=== PATIENT | male | born 1945 | race Caucasian/White ===

== ENCOUNTER 2018-07-14 01:31 | Observation (INO) | payer OTHER, MEDICARE ==
[~2018-07-14] VITALS: Ht 162.6 cm; Wt 87.1 kg
[~2018-07-14 01:31] MED LIST: ACID CONTROLLER20 MG PO; BAYER CHEWABLE81 MG PO; KETOCONAZOLE15 GM; LATANOPROST2.5 ML OU; MULTIVITAMINS1 EAC9 PO; SIMVASTATIN40 M1 PO; TOPROL XL25 M1 PO; ZETIA10 M1 PO
[2018-07-14 06:17] LABS: ABSOLUTE BASOPHIL COUNT 0.1 /CUMM (0.0-0.2); ABSOLUTE EOSINOPHIL COUNT 0.4 /CUMM (0.0-0.7); ABSOLUTE GRANULOCYTE CT 3.9 /CUMM (1.4-6.5); ABSOLUTE LYMPH COUNT 2.2 /CUMM (1.2-3.4); ABSOLUTE MONOCYTE COUNT 0.8 /CUMM (0.10-0.60); BASOPHIL % 0.8 % (0.0-2.0); EOSINOPHIL % 4.9 % (0-5); GRANULOCYTE % 52.8 % (42.2-75.2); HEMATOCRIT 42.9 % (42-52); MEAN CORPUSCULAR HGB 31.4 PG (27.0-31.0); MEAN CORPUSCULAR HGB CONC 33.9 G/DL (33.0-37.0); MEAN CORPUSCULAR VOLUME 92.6 FL (80.0-94.0); MEAN PLATELET VOLUME 6.6 FL (7.4-10.4); PLATELET COUNT 304 /CUMM (130-400); RBC DISTRIBUTION WIDTH 13.8 % (11.5-14.5); RED BLOOD CELL CT 4.63 /CUMM (4.70-6.10); WHITE BLOOD CELL COUNT 7.3 /CUMM (4.8-10.8)
--- NOTE | 2018-07-14 12:43 | Admission Core Measures ---
Acute Coronary Syndrome (CM) ACS Core Measures Acute Coronary Syndrome Diagnosis No Congestive Heart Failure (NEW) CHF Core Measures Congestive Heart Failure Diagnosis No Cerebrovascular Accident CVA Core Measures CVA/TIA Diagnosis No Venous Thromboembolism VTE Core [place] (View Protocol) VTE Risk Factors Surgery No Mechanical VTE Prophylaxis d/t N/A MechProphylax Ordered No VTE Pharm Prophylaxis d/t NA PharmProphylax ordered Problem List As ranked by this Provider includes Assessment & Plan 1. Ventral hernia HOME MEDS Home Med List Aspirin (Rene Chewable Aspirin) 81 MG TAB.CHEW 1 TAB PO DAILY HEART HEALTH ( Reported) Ezetimibe (Zetia) 10 MG TABLET 10 MG PO DAILY CHOLESTEROL (Reported) Famotidine (Acid Controller) 20 MG TABLET 20 MG PO DAILY ACID REFLUX ( Reported) Latanoprost 0.005 % DROPS 1 DROP OU DAILY OCULAR PRESSURE (Reported) Metoprolol Succ XL (Toprol XL) 25 MG TAB 1 TAB PO DAILY BLOOD PRESSURE ( Reported) Multiple Vitamin (Multivitamins) 1 EACH TABLET 1 TAB PO DAILY SUPPLEMENT ( Reported) Simvastatin (Simvastatin*) 40 MG TABLET 1 TAB PO DAILY CHOLESTEROL (Reported)
--- NOTE | 2018-07-14 12:46 | Surg Short-stay <48hrs Dis Sum ---
Visit Information Visit Dates Admission Date: 07/14/18 Discharge Date: 07/15/18 Surgical Short Stay DC Summary Admission Diagnosis: 1. Recurrent incarcerated incisional hernias with incarcerated umbilical hernia. 2. Rectus diastases Final Diagnosis: KOFI s/p robotic repair of recurrent incarcerated incisional hernias and incarcerated umbilical hernia, IPOM, 8 x 15 Sepramesh; explantation of prior Ventralex mesh with PTFE coating Procedure(s): 1. Robotic repair of recurrent incarcerated incisional hernias and incarcerated umbilical hernia, IPOM, 8 x 15 Sepramesh 2. Explantation of prior Ventralex mesh with PTFE coating Summary/Significant Findings: Patient presented for an elective robotic repair of recurrent incarcerated incisional hernias and incarcerated umbilical hernia and explantation of prior mesh. He tolerated the procedure well. Diet was advanced and tolerated. On the day of discharge, he was voiding spontaneously, ambulating without difficulty and pain was controlled with oral analgesics. Condition at Discharge: Stable Discharge Disposition: home or self care Discharge instructions provided to patient/family: Yes Post discharge follow-up plan: 1-[address] Frankel
--- NOTE | 2018-07-14 12:49 | Patient Discharge Instructions ---
Discharge Instructions General Discharge Information You were seen/treated for: Recurrent incarcerated incisional hernias with incarcerated umbilical hernia Rectus diastases You had these procedures: Robotic repair of recurrent incarcerated incisional hernias and incarcerated umbilical hernia with explantation of prior mesh on 07/14 Watch for these problems: Increased pain, fever > 101.3, chills, nausea, vomiting, redness, swelling or drainage from incisions Do not soak the wound: Yes No bath, but you may shower: Yes Other wound care: Keep incisions clean and dry Change dressing daily as needed Diet Continue normal diet: Yes Recommended Diet: Regular Activity Full Activity/No Limits: No Activity Self Limited: Yes Pounds, do NOT lift more than: 10 (x 4 weeks) Other activity limits: No heavy lifting or strenous activity x 4 weeks Acute Coronary Syndrome Inclusion Criteria At DC or during hospital stay patient has or had the following: ACS DIAGNOSIS No Discharge Core Measures Meds if any: Prescribed or Continued at Discharge Meds if any: NOT Prescribed or Continued at Discharge Congestive Heart Failure Inclusion Criteria At DC or during hospital stay patient has or had the following: CHF DIAGNOSIS No Discharge Core Measures Meds if any: Prescribed or Continued at Discharge Meds if any: NOT Prescribed or Continued at Discharge Cerebrovascular accident Inclusion Criteria At DC or during hospital stay patient has or had the following: CVA/TIA Diagnosis No Discharge Core Measures Meds if any: Prescribed or Continued at Discharge Meds if any: NOT Prescribed or Continued at Discharge Venous thromboembolism Inclusion Criteria VTE Diagnosis No VTE Type NONE VTE Confirmed by (Test) NONE Discharge Core Measures - Per Current guidelines, there needs to be overlap - treatment for the first 5 days of Warfarin therapy. - If discharged on Warfarin prior to 5 days of - overlap therapy, the patient will need to be - assessed for post discharge needs including - *Post discharge parental anticoagulation - *Warfarin and/or parental anticoagulation education - *Follow up date to check INR post discharge At least 5 days overlap therapy as Inpatient No Meds if any: Prescribed or Continued at Discharge Note: Overlap Therapy is Warfarin and Anticoagulant Meds if any: NOT Prescribed or Continued at Discharge
[2018-07-14 14:51] VITALS: BP 116/84
--- NOTE | 2018-07-14 16:53 | Operative Report ---
Operative/Inv Procedure Report Surgery Date: 07/14/18 Name of Procedure: Robotic repair of recurrent incarcerated incisional hernias and incarcerated umbilical hernia, IPOM, 8 x 15 Sepramesh Explantation of prior Ventralex mesh with PTFE coating Pre-Operative Diagnosis: Recurrent incarcerated incisional hernias with incarcerated umbilical hernia. Rectus diastases Post-Operative Diagnosis: Same Estimated Blood Loss: scant Surgeon/Manager Shift: Marlys VILLARREAL,Leo Mahan PA-C Anesthesia: general endotracheal tube, block IV Fluids: 1800 cc crystalloid ASA 2 Implants: 8 x 15 cm Septra mesh Drains: None Specimens: None Complications: None Condition: Excellent to PACU extubated Operative Indication: Al is a 73-year-old gentleman who has had prior mesh repair of a incisional hernia supraumbilical probably related to his prostate surgery and who noticed a progressive bulging and discomfort in that area. CT scan revealed an incarcerated recurrent incisional hernia which was bowel and mesentery containing in addition to a more superior smaller fat-containing incisional hernia and a fat-containing umbilical hernia. He presents for robotic repair of all of these. Mesh explantation is possible.. Operative/Procedure Note Note: The patient is taken to the operating room placed on the operating table in supine position. His herniated areas were marked in the preop holding area and his abdomen clipped in the preop holding area as well. Following an awake timeout he underwent uneventful induction of general endotracheal anesthesia. Right arm was tucked on his side his left arm was out. A TAP block was performed by anesthesia with ultrasound guidance. Venodyne boots were in place and he received IV antibiotics as well as subcu heparin 5000. A rolled bath blanket was placed behind his left flank and the table flexed. The abdomen was then widely prepped with DuraPrep and then draped in usual sterile fashion including Ioban. Local anesthetic was now infiltrated in the left upper quadrant at the site of planned incision which was just off the edge of the rib at about the level of the anterior axillary line. Incision was carried down through skin and subcutaneous tissue with the cautery now to the through Alison' s fascia to the external oblique aponeurosis. This was opened along its fibers and stay sutures of 0 Vicryl placed. The internal Bleich had a reasonable fashion on was open transversely and the muscle split. This revealed the transversus abdominis which was also had a thin fascia to it which was split to expose the transversalis fascia and peritoneum. It was carefully incised to gain entry safely into the peritoneal cavity and a finger sweep revealed there were no adhesions and a 12 mm Smith port placed secured with the stay sutures and a pneumoperitoneum achieved. Patient was rolled slightly to the right side. Now the 8 mm exercise 30 scope was placed within and one could see the area of concern with prior hernia mesh rolled up on one edge on the on the left another area surrounding this with adherent omentum consistent with the CT findings of recurrent hernias. We placed 2 8 mm working ports laterally the lowest at the level of the ASIS and the other at custodial between the first 2 ports all after infiltrating local anesthetic. The middle port was placed as lateral as possible. Now the XI robot was docked and the camera placed in the middle 3 arm while the 2-arm received a fenestrated bipolar and monopolar jose was placed and on for a while arm 1 was sterilely stowed. I began by taking down adhesions to the cephalad most hernia. There was some omentum pulled up here with some traction on this I was able to incise the margin of the defect to free the omentum and release it completely. This was a 2 x 1.5 cm defect. There was a small satellite defects less than 1 cm immediately adjacent to this. One could appreciate the area of the diastases noted on CT scan. I then turned attention to the umbilical hernia were cleared off a large fat pad beginning on the left side working across the midline and identifying the fat-containing umbilical hernia reducing a completely leaving the flap of preperitoneal fat attached inferiorly. Superiorly it was behind the inferior portion of the Ventralex mesh. This was a PTFE coated old style Ventralex mesh. Left side had clearly rolled up and partially rolled up inferiorly. And now began dissecting around the primary defect working at the edge of the mesh and reducing a large volume of merely omentum. There was no bowel within the hernia contents. External pressure by the PAs facilitated this quite nicely and there is really minimal bleeding as I was able to free the attachments as they came into view with the cautery. This defect was the largest measuring 5 cm x 5 cm. At this time I decided to explant the mesh as the mesh was covering areas that could not be sure of what was present particularly if there was preperitoneal fat in a effectively could not see. I used the cautery to free the mesh from its fascial attachments quite nicely with minimal damage to the abdominal wall. I left the mesh sitting on the omentum for future removal. Now I could completely take down the fat pad from the left side to the right side over the entire midportion of the abdomen and the and this included the portion from the inferior fat pad was going up behind the mesh. I had to amputate assert a good portion of the central portion of the fat pad as it was very thinned out and beaten up from the prior mesh and from the dissection. I left a good flap superiorly and inferiorly. Now I closed the diastases and all the hernia defects with a running suture of 0 permanent V lock beginning 3 cm cephalad to the first defect and finishing 3 cm inferior to the umbilical defect. This was a span of 15 cm. Inferiorly I ran the suture back up across the umbilical defect once again as I had some extra suture there. Now I covered the entire area with a separate mesh that was at the corners rounded and measured 8 cm x 15 cm. I placed medium clips around the edge for later CT scan identification. I secured with running suture of 2-0 absorbable V lock. This was followed with 2-0 Tycron permanent sutures at the 4 Compass points and at the custodial point between the 4 Compass points amounting to 8 suit permanent sutures now the flap of peritoneal fat pad superiorly and inferiorly were brought up over the superior and inferior portions of the mesh sequentially using running 2-0 Vicryl suture covering approximately one quarter of the total mesh. Now the mesh and the amputated portion of the fat pads as well as some extra suture material was all placed in an extraction bag and removed and pulled up to the Smith port. We then removed all the 8 mm ports under direct vision and there was no bleeding. We released the completely pulled out the bag from the side port. The upper Port Site Was Closed with [id number] 0 Maxon Sutures Beginning with a Transversus Abdominis Layer Including the Peritoneum and Transversalis Fascia and Then the Internal Oblique Thin Fascia Closed Followed by a Running Suture on the External Oblique Aponeurosis. Skin Krystyna Were Used on All the Port Sites Followed by Telfa Dressings with OpSite. An Abdominal Binder Was Placed. Al tolerated the procedure well and was taken to the recovery room extubated in stable condition all sponge needle and instrument counts forms correct 2 completion of the case. Findings: Prior Ventralex with PTFE coating rolled up from inferiorly and from the left side with recurrent herniation of predominantly omentum as well as de samantha hernia at the umbilicus of the umbilicus containing fat and a new incisional hernia superior to the prior repair also omental containing. Rectus diastases was noted. This operation took over 4 hours and given the complexity of the natures of the hernia and the multiple hernias as well as the mesh explantation and multiple layers of repair qualifies for 22 modifier. Discharge Disposition: Same Day Admissions
[2018-07-14 17:00] VITALS: BP 153/90
[2018-07-14 19:00] VITALS: BP 147/93
[2018-07-14 21:00] VITALS: BP 140/92
[2018-07-14] MEDS ORDERED: PERCOCET 5-3251 EACH PO (21:47)
--- NOTE | 2018-07-14 21:55 | PN- General Surgery ---
Subjective Subjective: POC feeling well, ambulating in halls, no cp/sob, no n/v, kar clears, hungry. + voids. no bm/flatus Objective Vital Signs and I&Os Vital Signs Date Time Temp Pulse Resp B/P B/P Pulse O2 O2 Flow FiO2 Mean Ox Delivery Rate 07/14 2139 72 158/76 07/14 1900 97.7 98 18 147/93 95 Room Air 07/14 1700 97.9 87 18 153/90 97 Room Air 07/14 1451 97.4 80 18 116/84 98 Room Air Intake & Output 07/14 1600 07/14 0800 07/14 0000 07/13 1600 07/13 0800 07/13 0000 Intake Total Output Total Balance Patient 192 lb 192 lb Weight Physical Exam: gen- nad card-s1s2 rrr pulm- ctab abd- soft, mildly ttp thoughout, incisions dressed- cdi. ext- calves soft nt bl Assessment/Plan Assessment/Plan A- POD0 sp robo recurrent incisional hernia repair w mesh, stable with appropriate minimal postop pain. P- oob, ambualte hepsq alps prn po pain meds reg diet as tolerated hl ivf home meds dc planning Core Measures Venous Thromboembolism VTE Risk Factors Surgery No Mechanical VTE Prophylaxis d/t N/A MechProphylax Ordered No VTE Pharm Prophylaxis d/t NA PharmProphylax ordered
[2018-07-15 01:00] VITALS: BP 102/60
[2018-07-15 05:00] VITALS: BP 114/70
--- NOTE | 2018-07-15 06:43 | PN- General Surgery ---
See Addendum Subjective Subjective: Patient reports pain controlled. Tolerating reg diet without nausea or vomiting. Denies passing flatus/BM. Eager to go home today. Objective Vital Signs and I&Os Vital Signs Date Time Temp Pulse Resp B/P B/P Pulse O2 O2 Flow FiO2 Mean Ox Delivery Rate 07/15 0500 98.3 82 18 114/70 96 07/15 0100 97.9 93 18 102/60 94 07/14 2306 Room Air Room Air 07/14 2139 72 158/76 07/14 2100 98.6 98 18 140/92 94 Room Air 07/14 1900 97.7 98 18 147/93 95 Room Air 07/14 1700 97.9 87 18 153/90 97 Room Air 07/14 1451 97.4 80 18 116/84 98 Room Air Intake & Output 07/15 0800 07/15 0000 07/14 1600 07/14 0800 07/14 0000 07/13 1600 Intake Total 240 600 Output Total 800 Balance 240 -200 Intake, IV 600 Intake, Oral 240 Output, Urine 800 Patient 192 lb 192 lb Weight Physical Exam: Gen - nad Cardiac - S1S2 noted Lungs - CTAB Abd - soft, nondistended, +bs, dressing c/d/i, nontender Ext - alps in place, no edema or calf pain Current Medications: Current Medications Sig/Jesika Start time Last Medication Dose Route Stop Time Status Admin Acetaminophen 650 MG Q6P PRN 07/14 1500 AC PO Atorvastatin Calcium 20 MG 1700 07/14 1700 AC 07/14 PO 1808 Cefazolin Sodium 1,000 MG ONCE 07/14 0000 DC IV 07/14 2359 Dextrose/Sodium 1,000 ML .[id number] 07/14 1500 DC 07/14 Chloride IV 1638 Docusate Sodium 100 MG DAILY NEEDED PRN 07/14 1500 AC PO Ezetimibe 10 MG DAILY 07/15 0900 AC PO Famotidine 20 MG DAILY 07/15 0900 DC PO Famotidine 20 MG BID 07/14 2100 AC 07/14 PO 2139 Heparin Sodium 5,000 UNIT Q8 07/14 1400 AC 07/15 (Porcine) SC 0549 Ketorolac 15 MG Q6-PRN PRN 07/14 1615 AC Tromethamine IV Latanoprost 1 GTT QPM 07/15 2100 AC OPH Latanoprost 1 GTT DAILY 07/15 0900 DC 07/14 OPH 1808 Metoprolol Succinate 25 MG DAILY 07/15 900 DC PO Metoprolol Succinate 25 MG QPM 07/14 2100 AC 07/14 PO 2138 Multivitamins 1 TAB DAILY 07/15 900 AC Therapeutic PO Ondansetron HCl 4 MG Q6P PRN 07/14 1500 AC IV Oxycodone/ 1 TAB Q4P PRN 07/14 1500 AC 07/14 Acetaminophen PO 2137 Oxycodone/ 2 TAB Q4P PRN 07/14 1500 AC Acetaminophen PO Polyethylene Glycol 17 GM DAILY NEEDED PRN 07/14 1500 AC PO Results Last 48 Hours of Labs: Laboratory Tests 07/14 610 Chemistry Sodium (137 - 145 mmol/L) 140 Potassium (3.5 - 5.1 mmol/L) 4.5 Chloride (98 - 107 mmol/L) 106 Carbon Dioxide (22 - 30 mmol/L) 28 Anion Gap (5 - 16) 6 BUN (9 - 20 mg/dL) 18 Creatinine (0.7 - 1.2 mg/dL) 1.0 Estimated GFR (>60 ml/min) > 60 BUN/Creatinine Ratio (7 - 25 %) 18.0 Glucose (65 - 99 mg/dL) 115 H Calcium (8.4 - 10.2 mg/dL) 9.0 Hematology CBC w Diff NO MAN DIFF REQ WBC (4.8 - 10.8 /CUMM) 7.3 RBC (4.70 - 6.10 /CUMM) 4.63 L Hgb (14.0 - 18.0 G/DL) 14.6 Hct (42 - 52 %) 42.9 MCV (80.0 - 94.0 FL) 92.6 MCH (27.0 - 31.0 PG) 31.4 H MCHC (33.0 - 37.0 G/DL) 33.9 RDW (11.5 - 14.5 %) 13.8 Plt Count (130 - 400 /CUMM) 304 MPV (7.4 - 10.4 FL) 6.6 L Gran % (42.2 - 75.2 %) 52.8 Lymphocytes % (20.5 - 51.1 %) 30.1 Monocytes % (1.7 - 9.3 %) 11.4 H Eosinophils % (0 - 5 %) 4.9 Basophils % (0.0 - 2.0 %) 0.8 Absolute Granulocytes (1.4 - 6.5 /CUMM) 3.9 Absolute Lymphocytes (1.2 - 3.4 /CUMM) 2.2 Absolute Monocytes (0.10 - 0.60 /CUMM) 0.8 H Absolute Eosinophils (0.0 - 0.7 /CUMM) 0.4 Absolute Basophils (0.0 - 0.2 /CUMM) 0.1 Assessment/Plan Assessment/Plan 73 M POD 1 s/p ventral hernia repair with mesh, recovering well, awaiting return of bowel function Cont reg diet Pain meds prn OOB ambulation Home meds on board DVT ppx - alps, hsq Keep in observation in anticipation of d/c today Will d/w Dr. Frankel Core Measures Venous Thromboembolism VTE Risk Factors Surgery No Mechanical VTE Prophylaxis d/t N/A MechProphylax Ordered No VTE Pharm Prophylaxis d/t NA PharmProphylax ordered
[2018-07-15 09:10] VITALS: BP 118/58
[2018-07-15 12:00] VITALS: BP 120/62
== END 2018-07-15 13:00 ==
LOC: STS 01:31 → PACUH 12:32 → ENRESERV 13:14 → ENTRNSPT 14:25 → EDTRNSPT 14:43 → EDTRNSPTSTS 14:43 → 2NB 14:51 → CMPTRNSPT 14:58 → 2NB 07-15 13:00
PROVIDERS: Surgery
DX: K43.0 Incisional hernia with obstruction, without gangrene (principal); K42.0 Umbilical hernia with obstruction, without gangrene; M62.08 Separation of muscle (nontraumatic), other site; C61 Malignant neoplasm of prostate; I10 Essential (primary) hypertension; Z79.82 Long term (current) use of aspirin
CPT/HCPCS: 49566; 49568; 49587; 64488; S2900; 1255; 6040; 36415; 96372; C9290; G0378; J0131; J0690; J1644; J2250; J3490; J7042